=== PATIENT | male | born 1995 | race Caucasian/White ===

== ENCOUNTER 2018-12-15 22:44 | Emergency (ER) | payer OTHER ==
[~2018-12-15] VITALS: Ht 175.3 cm; Wt 88.0 kg
[2018-12-15 23:01] VITALS: Ht 175.3 cm; Wt 88.0 kg
[2018-12-16 00:29] VITALS: BP 116/76
== END 2018-12-16 00:29 | disposition home or self-care (01) ==
LOC: ED 22:44
DX: L60.0 Ingrowing nail (principal); Z98.890 Other specified postprocedural states
CPT/HCPCS: J2001

== ENCOUNTER 2019-01-15 18:31 | Inpatient (IN) | payer OTHER ==
[~2019-01-15] VITALS: Ht 175.3 cm; Wt 86.2 kg
[2019-01-15 18:38] VITALS: Ht 175.3 cm; Wt 86.2 kg
--- NOTE | 2019-01-15 18:53 | NUR ---
ASSUMED PATIENT CARE, NURSING ASSESSMENT COMPLETED.
--- NOTE | 2019-01-15 18:53 | NUR ---
AGENCY DOCUMENTATION DONE BY Staff Name/Title - : ROXIE MOROCHO JR/INDY [employer] User ID - : [id number] Agency Name - : [employer] Time Documented - From - : 699 To - : 1929
[2019-01-15 19:27] LABS: BASOPHIL % 0.4 % (0-2); PLATELET COUNT 275 x10^3mcL (130-400); RED CELL DISTRIBUTION WIDTH 13.6 % (11.5-14.5)
[2019-01-15 19:38] LABS: CARBON DIOXIDE 28.7 mmol/L (21-32); CHLORIDE SERUM 105 mmol/L (98-107); CREATININE SERUM 0.8 mg/dL (0.7-1.3); GFR1 > 60 mL/min; GLUCOSE SERUM 102 mg/dL (74-106); POTASSIUM SERUM 3.5 mmol/L (3.5-5.1); SODIUM SERUM 142 mmol/L (136-145)
--- NOTE | 2019-01-15 19:40 | NUR ---
PT SITTING UP IN BED WITH SIGNIFICANT OTHER AT BEDSIDE. NO SIGNS OF DISTRESS AT THIS TIME.
[2019-01-15 19:43] LABS: ALBUMIN 4.1 g/dL (3.4-5.0); ALKALINE PHOSPHATASE 80 U/L (46-116); ALT/SGPT 57 U/L (16-63); AST/SGOT 27 U/L (15-37); BILIRUBIN TOTAL 0.3 mg/dL (0.20-1.00); TOTAL PROTEIN, SERUM 7.5 g/dL (6.4-8.2)
[2019-01-15 19:49] LABS: microscopic required? NO
[2019-01-15 19:57] LABS: UA SPECIFIC GRAVITY <=1.005 (1.005-1.035); urine erythrocyte NEGATIVE (NEGATIVE)
[2019-01-15 20:05] LABS: AMPHETAMINE QUAL UR NONE DETECTED (See below)
--- NOTE | 2019-01-15 20:44 | NUR ---
PT RESTING IN BED WITH NO SIGNS OF DISTRESS AT THIS TIME. SIGNIFICANT OTHER AT BEDSIDE.
--- NOTE | 2019-01-15 21:23 | NUR ---
PT RESTING IN BED WITH EYES CLOSED WITH NO SIGNS OF DISTRESS AT THIS TIME. FAMILY AT BEDSIDE.
--- NOTE | 2019-01-15 22:47 | NUR ---
PT RESTING IN BED WITH SIGNIFICANT OTHER AND MOTHER AT BEDSIDE.
[2019-01-15] MEDS ORDERED: ISOTRETINOIN PO (22:50)
--- NOTE | 2019-01-15 23:12 | NUR ---
REPORT GIVEN TO VALENTINA PUTNAM.
[2019-01-15 23:49] VITALS: BP 105/52
--- NOTE | 2019-01-15 23:58 | NUR ---
RECEIVED PT FROM ER PT ADMIT FOR SYNCOPE. PT IS A/O X4, VERBAL RESPONSIVE, C/O HEADACHE, DIZZINESS AT THIS MOMENT, LUNG SOUND CLEAR BILATERAL, NO COUGH BUT C/O SOB, PT IS 98% ON ROOMAIR, BUT PT REQUEST TO BE ON O2 TO HELP HIM BREATHING, PUT PT ON 2L/MIN O2 VIA NC. PT STATE FEEL BETTER. PT IS ON TELE 4, NSR WITH ELEVATE T WAVE, DENY ANY CHEST PAIN OR DISCOMFORT, BOWEL SOUND PRESENT ALL 4 QUADRANT, NO DISTENTION, NO TENDER. PEDAL PULSE PRESENT BOTH FEET, NO EDEMA, IV AT LEFT AC, NO LEAKING, NO INFILRATION. ALL ADLS ASSIST, ALL NEED MET, CALL LIGHT IN REACH, WILL CONTINUE TO MONITOR.
[2019-01-16 00:07] LABS: CHOLESTEROL/HDL RATIO 3.4
--- NOTE | 2019-01-16 00:09 | NUR ---
PT AWAKE AND ALERT WITH SIGNIFICANT OTHER AT BEDSIDE. PT DENIES DIZZINESS AND PAIN THUS FAR. IV INTACT ON THE LAC. MADE PT COMFORTABLE. PLACED CALL LIGHT WITH IN REACH. WILL CONTINUE TO MONITOR.
[2019-01-16 03:39] LABS: BASOPHIL % 0.3 % (0-2); PLATELET COUNT 236 x10^3mcL (130-400); RED CELL DISTRIBUTION WIDTH 13.2 % (11.5-14.5)
[2019-01-16 03:57] LABS: CALCIUM 8.5 mg/dL (8.5-10.1); CARBON DIOXIDE 26.2 mmol/L (21-32); CHLORIDE SERUM 108 mmol/L (98-107); CREATININE SERUM 0.7 mg/dL (0.7-1.3); GFR1 > 60 mL/min; GLUCOSE SERUM 99 mg/dL (74-106); MAGNESIUM 1.8 mg/dL (1.8-2.4); PHOSPHOROUS 3.7 mg/dL (2.5-4.9); POTASSIUM SERUM 3.4 mmol/L (3.5-5.1); SODIUM SERUM 143 mmol/L (136-145)
[2019-01-16 05:53] VITALS: BP 105/52
--- NOTE | 2019-01-16 06:52 | NUR ---
PT RESTING WITH EYES CLOSED. EASILY AROUSABLE WITH VERBAL STIMULI. NO C/O DIZZINESS THUS FAR. DR. EDWARDS NOTIFIED OF ORTHOSTATIC VITAL SIGNS RESULTS. MADE PT COMFORTABLE. WILL ENDORSE TO THE AM NURSE ACCORDINGLY.
--- NOTE | 2019-01-16 07:05 | NUR ---
RECEIVED PT FROM MATEO RN. PT FOUND RESTING IN BED WITH BOTH EYES CLOSED. NO S/S OF ACUTE DISTRESS. SINUS ERIN WITH ELEVATED T WAVE ON TELE 4. HR 50. FALL PRECAUTIONS IN PLACE. SIDE RAILS UP X2. RR EVEN/UNLABORED. NO S/S OF SOB ON ROOM AIR. IV WNL TO LAC, NO REDNESS, NO SWELLING, NO INFILTRATION. PATENT AND FLUSHES WELL. BED IN LOW POSITION. CALL LIGHT WITHIN REACH. VISITOR AT BEDSIDE. WILL CONTINUE TO MONITOR.
[2019-01-16 10:22] VITALS: BP 92/48
--- NOTE | 2019-01-16 12:41 | NUR ---
PT LAYING IN BED WITH HOB ELEVATED EATING LUNCH. NO N/V. NO SOB ON ROOM AIR. DENIES PAIN. CALM/COOPERATIVE. DENIES DIZZINESS AT THIS TIME. NO CHEST PAIN. PT CALM/COOPERATIVE. DR. EDWARDS AWARE OF AM VITAL SIGNS. NO FURTHER ORDERS AT THIS TIME. VISITORS AT BEDSIDE. INSTRUCTED TO USE CALL LIGHT TO CALL FOR ASSISTANCE BEFORE AMBULATING AND PRN. VERBALIZED UNDERSTANDING. FALL PRECAUTIONS IN PLACE. WILL CONTINUE TO MONITOR.
[2019-01-16 13:27] VITALS: BP 113/50
[2019-01-16 16:45] VITALS: BP 116/46
--- NOTE | 2019-01-16 18:35 | NUR ---
PT RESTING IN BED WITH BOTH EYES CLOSED. NO S/S OF PAIN, NO S/S OF ACUTE DISTRESS. NO SOB ON ROOM AIR. NO CHEST PAIN. EASILY AROUSABLE TO VERBAL STIMULI. MOTHER AT BEDSIDE. DENIES DIZZINESS AT THIS TIME. CALM/COOPERATIVE. SIDE RAILS UP X2. BED IN LOW POSITION. CALL LIGHT WITHIN REACH. FALL PRECAUTIONS IN PLACE. WILL ENDORSE TO ONCOMING SHIFT.
--- NOTE | 2019-01-16 20:09 | NUR ---
AWAKE AND ALERT, ORIENTED TO NAME, PLACE, TIME AND SITUATION. SPEECH CLEAR AND APPROPRIATE. BREATHING EVEN AND UNLABORED, LUNG SOUNDS CLEAR. STATED GOT DIZZY WHEN HE SAT UP TOO SUDDENLY. EXPLAINED NEED TO GET UP SLOWLY TO PREVENT LOW BLOOD SUPPLY TO BRAIN. ON IVF OF NS AT 125ML/HR. PT'S MOTHER IN ROOM.
[2019-01-16 20:42] VITALS: BP 104/42
--- NOTE | 2019-01-16 21:46 | NUR ---
PT STATED HE HAS NEW NODULES TO HIS ARMPITS. INFORMED DR. CHAN
--- NOTE | 2019-01-16 22:02 | NUR ---
DR. GILES IN PT'S ROOM
--- NOTE | 2019-01-16 23:17 | NUR ---
SIGNIFICANT OTHER STAYING THE NIGHT. OK WITH CN HEAVENLY. PT AWAKE AND ALERT, BREATHING EVEN AND UNLABORED ON ROOM AIR. IVF INFUSING WELL TO IV SITE TO LEFT AC, IV SITE FREE FROM ERYTHEMA OR SWELLING.
[2019-01-17 05:30] VITALS: BP 108/37
--- NOTE | 2019-01-17 06:58 | NUR ---
SLEPT THROUGH MOST OF SHIFT. IN NO ACUTE DISTRESS. BREATHING REMAINED EVEN AND UNLABORED ON ROOM AIR. IVF INFUSING WELL.
--- NOTE | 2019-01-17 07:07 | NUR ---
AWAKE AND ALERT, SITTING UP ON BED. STATED FEELING BETTER. ENDORSED TO NURSE MAURO
--- NOTE | 2019-01-17 07:15 | NUR ---
RECEIVED PT FROM MATEO VILLALTA. PT AA/OX4. FACE SYMMETRICAL, SPEECH CLEAR. PERRLA, BRISK, SIZE 3, REPORTS INTERMITTENT DIZZINESS, FALL PRECAUTIONS IN PLACE. NO SOB ON ROOM AIR. NO CHEST PAIN. NO N/V. NO KEYS. FOLLOWS COMPLEX COMMANDS, SENSATION BUE/BLE WNL. AMBULATORY WITH FULL ROM, GAIT STEADY. SIGNIFICANT OTHER AT BEDSIDE. SIDE RAILS UP X2. BED IN LOW POSITION. CALL LIGHT WITHIN REACH. INSTRUCTED TO USE CALL LIGHT TO CALL FOR ASSISTANCE PRN AND BEFORE GETTING OOB WHEN DIZZY. PT VERBALIZED UNDERSTANDING. WILL CONTINUE TO MONITOR.
[2019-01-17 07:27] LABS: BASOPHIL % 0.1 % (0-2); PLATELET COUNT 235 x10^3mcL (130-400); RED CELL DISTRIBUTION WIDTH 13.6 % (11.5-14.5)
[2019-01-17 07:34] LABS: CALCIUM 8.4 mg/dL (8.5-10.1); CHLORIDE SERUM 109 mmol/L (98-107); CREATININE SERUM 0.6 mg/dL (0.7-1.3); GFR1 > 60 mL/min; GLUCOSE SERUM 91 mg/dL (74-106); MAGNESIUM 1.8 mg/dL (1.8-2.4); PHOSPHOROUS 3.2 mg/dL (2.5-4.9); POTASSIUM SERUM 3.8 mmol/L (3.5-5.1); SODIUM SERUM 144 mmol/L (136-145)
[2019-01-17 08:37] VITALS: BP 102/59
[2019-01-17 12:10] VITALS: BP 98/60
--- NOTE | 2019-01-17 12:20 | NUR ---
PT LAYING IN BED RESTING WITH BOTH EYES CLOSED. NO S/S OF ACUTE DISTRESS. EASILY AROUSABLE TO VERBAL STIMULI. FACE SYMMETRICAL. SPEECH CLEAR. NO BM TODAY. NO SOB ON ROOM AIR. NO CHEST PAIN. IVS WNL, SANDOSTATIN RUNNING AT 25ML/HR. NO REDNESS, NO SWELLING, NO INFILTRATION. PT DENIES ABD. PAIN. NO N/V/D. PT CALMCOOPERATIVE. BED IN LOW POSITION. CALL LIGHT WITHIN REACH. VOIDS FREELY WITH URINAL. WILL CONTINUE TO MONITOR.
--- NOTE | 2019-01-17 12:30 | NUR ---
PT SITTING UP IN BED. DENIES PAIN. NO N/V. REPORTS LOOSE BM X1, BROWN. DENIES KEYS. NO CHEST PAIN. NO SOB ON ROOM AIR. AA/OX4. DENIES DIZZINESS. CALM/COOPERATIVE. BED IN LOW POSITION. IV WNL TO LAC PATENT AND FLUSHES WELL. NO REDNESS, NO SWELLING, NO INFILTRATION. SALINE LOCKED. CALL LIGHT WITHIN REACH. MOTHER AT BEDSIDE. WILL CONTINUE TO MONITOR.
[2019-01-17 17:19] VITALS: BP 109/47; BP 98/60
--- NOTE | 2019-01-17 18:50 | NUR ---
PT DISCHARGED TO HOME. AWAKE, ALERT, ORIENTED X4. DENIES PAIN. NO SOB ON ROOM AIR. NO CHEST PAIN. NO DIZZINESS. NO KEYS. NO N/V/D. CALM/COOPERATIVE. DISCHARGE EDUCATION PROVIDED TO PATIENT, INSTRUCTED TO FOLLOW UP WITH PCP. PT VERBALIZED UNDERSTANDING. IV REMOVED FROM LAC, CATHETER IN TACT. PRESSURE APPLIED. BELONGINGS WITH PATIENT. ESCORTED TO LOBBY BY DRILLING INSPECTOR. AMBULATORY WITH FULL ROM, GAIT STEADY. ACCOMPANIED BY MOTHER.
== END 2019-01-17 18:49 | disposition home or self-care (01) | DRG 201 ==
LOC: ED 18:31 → DU 22:22 → MU 01-17 16:57
PROVIDERS: Emergency Medicine; ADMIT General Practice
DX: I49.8 Other specified cardiac arrhythmias (principal); G90.8 Other disorders of autonomic nervous system; D64.9 Anemia, unspecified; D72.829 Elevated white blood cell count, unspecified; L70.9 Acne, unspecified; E87.6 Hypokalemia; T50.905A Adverse effect of unspecified drugs, medicaments and biological substances, initial encounter; Y92.89 Other specified places as the place of occurrence of the external cause; Z83.3 Family history of diabetes mellitus; Z90.49 Acquired absence of other specified parts of digestive tract
CPT/HCPCS: 83880; G0378; J7030; J8597; Q0092